=== PATIENT | male | born 1990 | race Caucasian/White ===

== ENCOUNTER 2019-03-06 22:46 | Emergency (ER) | payer OTHER, SELFPAY ==
--- NOTE | 2019-03-06 22:47 | DI.RAD.S_ITS ---
PROCEDURE: XR SHOULDER LT MIN 2V INDICATIONS: possible dislocation TECHNIQUE: 2 views of the shoulder were acquired. COMPARISON: [facility], CR, XR SHOULDER LT MIN 2V, 03/07/2019, 0:14. FINDINGS: Bones: There is a left shoulder anterior dislocation seen. No definite associated fracture can be seen. The visualized ribs are unremarkable. No suspicious lytic or blastic lesions are seen. Soft tissues: No suspicious soft tissue calcifications. The visualized lung demonstrates an unremarkable appearance. IMPRESSION: Left anterior shoulder dislocation. Dictated by: Ross Farmer M.D. on 03/07/2019 at 8:39 Approved by: Ross Farmer M.D. on 03/07/2019 at 8:39
--- NOTE | 2019-03-06 22:48 | ED.GENADULT ---
HPI - General Adult General Chief complaint: Extremity Injury, Upper Stated complaint: thinks dislocated left shoulder Time Seen by Provider: 03/06/19 22:47 Source: patient Mode of arrival: Ambulatory Limitations: no limitations History of Present Illness HPI narrative: 28-year-old male states he was running through some grass when he tripped over his feet and fell forward. Unsure exactly how he landed however he did injuries left shoulder. He thinks that his shoulder is dislocated. He did take some muscle relaxers immediately afterwards. The was for someone else's medication that he was with. Has never injured his shoulder in the past. Review of Systems Constitutional Constitutional: Denies fever(s) and Denies headache(s) ENT Ears, Nose, Mouth, and Throat: Denies headache(s) Cardiovascular Cardiovascular: Denies chest pain and Denies dyspnea Respiratory Respiratory: Denies dyspnea Gastrointestinal Gastrointestinal: Denies abdominal pain Musculoskeletal Comments: Left shoulder pain Integumentary/Breasts Skin/Breast: Denies rash Neurologic Neurologic: Denies headache(s) and Reports paresthesias (Left little finger) Hematologic/Lymphatic Hematologic/Lymphatic: Denies easy bleeding and Denies easy bruising Patient History Medical History Healthy adult (Acute) Social History lives independently: Yes Exam Initial Vital Signs Initial Vital Signs: Vital Signs Temperature 97.9 F 03/06/19 22:56 Pulse Rate 100 H 03/06/19 22:56 Respiratory Rate 16 03/06/19 22:56 Blood Pressure 165/96 H 03/06/19 22:56 Pulse Oximetry 99 03/06/19 22:56 Const General: cooperative and No comfortable (Uncomfortable) Orientation: alert, awake and oriented x3 Resp Effort & Inspection: normal respiratory effort Auscultation: clear to auscultation bilaterally Cardio Pulses: radial pulses present on the left Skin Lesions: no lesions Rashes: no rashes Wounds: no wounds Neuro General: alert and awake Sensory Exam: no sensory deficits noted Other: Sensation intact over the lateral shoulder on the left Extrem Other: Obvious deformity to left shoulder. Left elbow left wrist unremarkable. No neck pain. Psych Appearance: grossly normal and well kempt Procedures Orthopedic Joint Reduction Joint #1: Time Out Performed: Yes Side: left Joint Reduction Location: shoulder Analgesia: none Shoulder Technique Used (if applicable): other (Rosa technique) Technique used: other (Used Rosa technique) Post-reduction neuro exam: intact Post-reduction vascular: intact Post Reduction X-Ray Obtained: Yes Post Reduction X-Ray Results: reduced Splint Applied: No (Sling) Patient Tolerated Procedure: Well and No complications Course Orders Ordered: ED Orders 03/06/19 22:47 XR shoulder LT min 2V Stat 03/07/19 00:04 XR shoulder LT min 2V Stat Discontinued Medications Hydromorphone HCl (Dilaudid) 1 mg IM NOW ONE Stop: 03/06/19 23:24 Last Admin: 03/06/19 23:26 Dose: 1 mg Documented by: CL Vital Signs Vital signs: Vital Signs - 8 hr 03/06/19 22:56 Temperature 97.9 F Pulse Rate 100 H Respiratory Rate 16 Blood Pressure 165/96 H Pulse Oximetry 99 Medical Decision Making Imaging Data Shoulder x-ray: Attestation: I personally reviewed and interpreted this imaging study as follows: My impression: Anterior dislocation without fracture Post reduction: Attestation: I personally reviewed and interpreted this imaging study as follows: My impression: Reduction of the anterior dislocation without fracture MDM Narrative Medical decision making narrative: Patient is neurovascularly intact. The dislocation was reduced using the Rosa technique after patient received IV pain medication. No the sedation was used. He was placed in a sling. He was given return precautions and follow-up instructions. He expressed understanding and agreement plan. Discharge Plan Departure Patient Disposition: Home Clinical Impression: Anterior shoulder dislocation Qualifiers: Encounter type: initial encounter Laterality: left Qualified Code(s): S43.015A - Anterior dislocation of left humerus, initial encounter Instructions: How to Use a Sling, DI for Shoulder Dislocation Activity Restrictions/Additional Instructions: I would recommend that you wear the sling for the next 24 hours. However you can take it off to shower and change your clothes. After that for the next couple days wear the sling only at night. You want to avoid the position like I demonstrated to you in the emergency department. When you return home contact your primary provider to discuss further workup and potential physical therapy.
[2019-03-06 22:56] VITALS: BP 165/96; PULSE 100; RESP 16; TEMP 36.6; O2SAT 99; BMI 29.0
[2019-03-06] MEDS: HYDROMORPHONE 1 MG INJ IM (23:26)
--- NOTE | 2019-03-07 00:04 | DI.RAD.S_ITS ---
PROCEDURE: XR SHOULDER LT MIN 2V INDICATIONS: post reduction TECHNIQUE: 2 views of the shoulder were acquired. COMPARISON: [facility], CR, XR SHOULDER LT MIN 2V, 03/06/2019, 23:03. FINDINGS: Bones: The left shoulder has now been relocated. No associated fracture can be seen. The visualized ribs are unremarkable No suspicious lytic or blastic lesions are seen. Soft tissues: No suspicious soft tissue calcifications. The visualized lung demonstrates an unremarkable appearance. IMPRESSION: Shoulder relocation, without fracture identified. Dictated by: Ross Farmer M.D. on 03/07/2019 at 8:40 Approved by: Ross Farmer M.D. on 03/07/2019 at 8:40
--- NOTE | 2019-03-07 00:15 | PC.NURSE ---
0000: Dr Garrison in room. Pt sitting in chair with Dr Garrison at side. Dr Garrison reducing pt's shoulder. No sedation at this time. Reduction successful. Pt tolerated well and reports resolution of pain. Sling applied. 2+ pulses. Pt appears more comfortable. Friends allowed in room. Awaiting further orders
[2019-03-07 00:56] VITALS: BP 142/92; PULSE 90; RESP 18; O2SAT 99
== END 2019-03-07 00:56 | disposition home or self-care (01) ==
PROVIDERS: Emergency Provider Emergency Medicine
DX: S43.015A Anterior dislocation of left humerus, initial encounter (principal); W01.0XXA Fall on same level from slipping, tripping and stumbling without subsequent striking against object, initial encounter
CPT/HCPCS: 23650; 73030; 96372; 99282; 99283; J1170